=== PATIENT | male | born 1995 | race African-American/Black ===

== ENCOUNTER 2017-11-05 20:24 | Emergency (ER) | payer SELFPAY ==
[~2017-11-05] VITALS: Ht 170.2 cm; Wt 66.0 kg
[2017-11-05] MEDS ORDERED: SODIUM CHLORIDE 0.9% 1,000 ML IV ONE ×2 (20:31→21:38)
[2017-11-05] MEDS ORDERED: LORAZEPAM 2MG/ML CPJ IV STA (20:31)
[2017-11-05] MEDS ORDERED: ONDANSETRON HCL 4MG/2ML INJ IV STA (20:31)
[2017-11-05] MEDS ORDERED: LORAZEPAM 2MG/ML CPJ ONE (20:34)
[2017-11-05] MEDS ORDERED: LEVETIRACETAM 500MG PREMIX 100 ML IV ONE (20:45)
[2017-11-05] MEDS ORDERED: DEXTROSE 50% WATER 50ML SYRINGE IV ONE ×2 (20:45→20:46)
[2017-11-05] MEDS ORDERED: LORAZEPAM 2MG/ML CPJ IV ONE (20:45)
[2017-11-05] MEDS ORDERED: OLANZAPINE 10 MG/VIAL IM ONE ×2 (20:58→21:00)
[2017-11-05 21:45] LABS: BASOPHILS % 0.6 % (0.0-2.0); EOSINOPHILS % 0.5 % (0.0-5.0); HEMOGLOBIN. 13.8 g/dL (14.0-18.0); LYMPHOCYTES % 16.8 % (20.0-50.0); MEAN CORPUSCULAR VOLUME 89.5 fL (80.0-94.0); MEAN PLATELET VOLUME 10.9 fl (7.4-10.4); MONOCYTES % 6.1 % (2.0-8.0); PLATELET 188 x1000/uL (130-400); RED BLOOD CELL COUNT 4.59 mill/uL (4.7-6.1); RED CELL DISTRIBUTION WIDTH 13.8 % (11.6-14.6)
[2017-11-05 21:50] LABS: CHLORIDE 113 mEq/L (98-107)
[2017-11-05 21:53] LABS: ETHANOL BLOOD 148 mg/dL; INR 1.1; PROTHROMBIN TIME 11.2 sec (9.1-11.1)
[2017-11-05 21:57] LABS: AMMONIA 44 uMol/L (<32)
[2017-11-05 21:58] LABS: CREATINE KINASE 208 IU/L (39-308)
[2017-11-05 22:03] LABS: CARBAMAZEPINE < 0.5 ug/mL (4-12); PHENOBARBITAL < 2.1 ug/mL (15.0-40.0)
[2017-11-06] MEDS ORDERED: SODIUM CHLORIDE 0.9% 1,000 ML IV ONE (00:54)
[2017-11-06 03:10] LABS: CLARITY URINE CLEAR (CLEAR); COLOR URINE YELLOW (YELLOW); KETONES URINE NEGATIVE (NEGATIVE); LEUKOCYTE ESTERASE URINE NEGATIVE (NEGATIVE); NITRITE URINE NEGATIVE (NEGATIVE); OCCULT BLOOD URINE NEGATIVE (NEGATIVE); PROTEIN URINE NEGATIVE (NEGATIVE); SPECIFIC GRAVITY URINE 1.009 (1.005-1.030); UROBILINOGEN URINE 0.2 E.U./dL (0.2-1.0)
[2017-11-06 04:45] LABS: *AMPHETAMINES SCREEN URINE NEGATIVE (NEGATIVE); *BARBITURATES SCREEN URINE NEGATIVE (NEGATIVE)
[2017-11-06 04:46] LABS: *BENZODIAZEPINES SCREEN URINE NEGATIVE (NEGATIVE); *COCAINE SCREEN URINE PRESUMTIVE POSITIVE (NEGATIVE); CANNABINOID URINE SCREEN PRESUMTIVE POSITIVE (NEGATIVE); METHADONE URINE SCREEN NEGATIVE (NEGATIVE); OPIATES URINE SCREEN NEGATIVE (NEGATIVE); PHENCYCLIDINE URINE SCREEN NEGATIVE (NEGATIVE)
[2017-11-06 10:11] VITALS: BP 118/63
== END 2017-11-06 10:45 | disposition home or self-care (01) ==
LOC: ER 20:24
DX: T51.0X1A Toxic effect of ethanol, accidental (unintentional), initial encounter (principal); T40.7X1A Poisoning by cannabis (derivatives), accidental (unintentional), initial encounter; G92 Toxic encephalopathy; S09.8XXA Other specified injuries of head, initial encounter; Y90.6 Blood alcohol level of 120-199 mg/100 ml; Y09 Assault by unspecified means; Y92.488 Other paved roadways as the place of occurrence of the external cause
CPT/HCPCS: 36415; 70450; 71045; 72125; 80053; 80156; 80165; 80184; 80185; 80305; 81003; 82140; 82550; 82962; 84443; 84484; 85025; 85610; 96361; 96365; 96372; 96375; 99285; G0482; J1953; J2060; J2405; J3490; J7030